=== PATIENT | female | born 1995 | race Caucasian/White ===

== ENCOUNTER 2022-07-11 18:56 | Emergency (ER) | payer BC, OTHER ==
[~2022-07-11] VITALS: Ht 162.6 cm; Wt 54.4 kg
--- NOTE | 2022-07-11 19:13 | NUR ---
BIB SELF C/C ABD PAIN
--- NOTE | 2022-07-11 19:20 | NUR ---
URINE SPECIMEN SENT TO LAB
--- NOTE | 2022-07-11 19:25 | NUR ---
IMPROVEMENT ANALYST AT BEDSIDE
--- NOTE | 2022-07-11 19:28 | NUR ---
WAIVER SIGNED. RADIOLOGY FF UP FOR CT SCAN
--- NOTE | 2022-07-11 19:35 | NUR ---
PT TAKEN TO CT SCAN VIA DEYANIRA
--- NOTE | 2022-07-11 19:39 | NUR ---
CAME BACK FROM CT SCAN
[2022-07-11 20:23] LABS: BILIRUBIN,URINE NEGATIVE (NEGATIVE); COLOR,URINE YELLOW (YELLOW); LEUKOCYTE ESTERASE ,URINE NEGATIVE (NEGATIVE); NITRITE, URINE NEGATIVE (NEGATIVE); PROTEIN,URINE NEGATIVE (NEGATIVE); UGLUCOSE NEGATIVE (NEGATIVE); UROBILINOGEN,URINE 0.2 EU/dL (0.2)
[2022-07-11 20:30] LABS: ALBUMIN 3.8 g/dL (3.4-5.0); BILIRUBIN,DIRECT 0.1 mg/dL (0.0-0.2); BILIRUBIN,TOTAL 0.3 mg/dL (0.2-1.0); CALCIUM, SERUM 9.1 mg/dL (8.5-10.1); CREATININE 0.9 mg/dL (0.6-1.3); POTASSIUM 3.7 mmol/L (3.5-5.1); TOTAL PROTEIN, SERUM 7.4 g/dL (6.4-8.2)
[2022-07-11 20:44] LABS: BACTERIA,URINE Many /HPF (None Seen); SQUAMOUS EPITHELIAL CELL,UR Many /HPF (None Seen); WBC,URINE NONE SEEN /HPF (0-3)
[2022-07-11] MEDS ORDERED: MORPHINE SULFATE INJ 4 MG/ML DISP.SYRIN ONE (20:59)
[2022-07-11] MEDS ORDERED: ONDANSETRON 4 MG TAB.RAPDIS ONE (20:59)
[2022-07-11] MEDS ORDERED: HYDR-4303 PO (21:00)
[2022-07-11] MEDS ORDERED: ONDA4TAB11 PO (21:00)
[2022-07-11] MEDS ORDERED: SULF1TAB48 PO (21:00)
[2022-07-11] MEDS ORDERED: MORPHINE SULFATE INJ 4 MG/ML DISP.SYRIN IM ONE (21:00)
[2022-07-11] MEDS ORDERED: ONDANSETRON 4 MG TAB.RAPDIS SL ONE (21:00)
--- NOTE | 2022-07-11 21:15 | NUR ---
Patient awaiting for mother to pickup pt for discharge to home. RX Written and verbal after care instructions given. Patient verbalizes understanding of instruction.
[2022-07-11 21:37] VITALS: BP 128/64
--- NOTE | 2022-07-11 21:37 | NUR ---
Patient discharged to home in stable condition. Written and verbal after care instructions given. Patient verbalizes understanding of instruction.
[2022-07-11 23:13] LABS: BASOPHILS % (AUTO) 0.3 % (0.0-2.0); EOSINOPHILS % (AUTO) 7.3 % (0.0-6.0); HEMATOCRIT 40 % (33-45); HEMOGLOBIN 13.5 g/dL (11.5-14.8); LYMPHOCYTES # (AUTO) 1.8 K/uL (0.8-4.8); LYMPHOCYTES % (AUTO) 27.8 % (20.0-44.0); MEAN CORPUSCULAR HGB CONC 34 g/dl (31.0-36.0); MEAN CORPUSCULAR VOLUME 88 fL (82-100); MONOCYTES # (AUTO) 0.4 K/uL (0.1-1.30); MONOCYTES % (AUTO) 6.7 % (2.0-12.0); NEUTROPHILS # (AUTO) 3.8 K/uL (1.8-8.9); NEUTROPHILS % (AUTO) 57.9 % (43.0-81.0); PLATELET COUNT (AUTO) 354 K/uL (150-450); RED BLOOD CELL COUNT(AUTO) 4.56 MIL/uL (4.0-5.2); WHITE BLOOD COUNT (AUTO) 6.6 K/uL (4.3-11.0)
== END 2022-07-11 21:38 | disposition home or self-care (01) ==
LOC: ER 19:06
DX: K52.9 Noninfective gastroenteritis and colitis, unspecified (principal); R10.31 Right lower quadrant pain; R11.0 Nausea
CPT/HCPCS: 99285; 74176; 96372; 85025; 80048; 87086; 83690; 80076; 84703; 81001; 36415; J2270; Q0162

== ENCOUNTER 2023-07-20 20:40 | Emergency (ER) | payer BC, OTHER ==
[~2023-07-20] VITALS: Ht 162.6 cm; Wt 54.4 kg
[~2023-07-20 20:40] MED LIST: HYDR-4303 PO; ONDA4TAB11 PO; SULF1TAB48 PO
[2023-07-20 21:40] VITALS: TEMP 99.9
[2023-07-20] MEDS ORDERED: ONDANSETRON HCL/PF 4 MG/2 ML VIAL ONE (22:01)
[2023-07-20] MEDS: IV NS 0.9% 1,000 ML BAG IV ONE (22:07)
[2023-07-20] MEDS: ONDANSETRON HCL/PF 4 MG/2 ML VIAL IVP ONE (22:07)
[2023-07-20 22:29] LABS: BASOPHILS % (AUTO) 0.1 % (0.0-2.0); EOSINOPHILS # (AUTO) 0.4 K/uL (0.0-0.7); EOSINOPHILS % (AUTO) 6.3 % (0.0-6.0); HEMATOCRIT 39 % (33-45); HEMOGLOBIN 13.4 g/dL (11.5-14.8); LYMPHOCYTES % (AUTO) 15.5 % (20.0-44.0); MEAN CORPUSCULAR HEMOGLOBIN 30 PG (26.0-33.0); MEAN CORPUSCULAR HGB CONC 34 g/dl (31.0-36.0); MEAN CORPUSCULAR VOLUME 88 fL (82-100); MONOCYTES # (AUTO) 0.4 K/uL (0.1-1.30); MONOCYTES % (AUTO) 6.1 % (2.0-12.0); NEUTROPHILS # (AUTO) 4.7 K/uL (1.8-8.9); PLATELET COUNT (AUTO) 207 K/uL (150-450); RED BLOOD CELL COUNT(AUTO) 4.47 MIL/uL (4.0-5.2); RED CELL DISTRIBUTION WIDTH 12.2 % (11.5-15.0); WHITE BLOOD COUNT (AUTO) 6.6 K/uL (4.3-11.0)
[2023-07-20 22:42] LABS: CALCIUM, SERUM 8.9 mg/dL (8.5-10.1); CREATININE 0.9 mg/dL (0.6-1.3); POTASSIUM 3.4 mmol/L (3.5-5.1)
[2023-07-20 22:47] LABS: ALBUMIN 3.6 g/dL (3.4-5.0); BILIRUBIN,DIRECT 0.1 mg/dL (0.0-0.2); BILIRUBIN,TOTAL 0.5 mg/dL (0.2-1.0); TOTAL PROTEIN, SERUM 7.2 g/dL (6.4-8.2)
[2023-07-20 23:18] LABS: APPEARANCE,URINE CLEAR (CLEAR); BILIRUBIN,URINE NEGATIVE (NEGATIVE); BLOOD, URINE NEGATIVE Ery/uL (NEGATIVE); COLOR,URINE YELLOW (YELLOW); KETONES,URINE NEGATIVE (NEGATIVE); LEUKOCYTE ESTERASE ,URINE TRACE (NEGATIVE); NITRITE, URINE NEGATIVE (NEGATIVE); PH,URINE 6.5 (5.0-8.0); PROTEIN,URINE NEGATIVE (NEGATIVE); UGLUCOSE NEGATIVE (NEGATIVE); UROBILINOGEN,URINE 0.2 EU/dL (0.2)
[2023-07-20 23:19] LABS: ADD URINE CULTURE NO; BACTERIA,URINE Rare /HPF (None Seen); PREGNANCY TEST URINE QUAL NEGATIVE (NEGATIVE); RBC,URINE 0-2 /HPF (0-2); SQUAMOUS EPITHELIAL CELL,UR Few /HPF (None Seen)
[2023-07-20] MEDS ORDERED: ONDA4TAB5 PO (23:26)
[2023-07-20] MEDS ORDERED: CEPH500C2 PO (23:26)
[2023-07-20] MEDS ORDERED: CIPR-262 PO (23:44)
[2023-07-20] MEDS ORDERED: FLUC150T PO (23:44)
[2023-07-21 00:07] VITALS: BP 120/68; O2SAT 98
== END 2023-07-21 00:07 | disposition home or self-care (01) ==
LOC: ER 20:44
DX: K52.9 Noninfective gastroenteritis and colitis, unspecified (principal); R11.2 Nausea with vomiting, unspecified
CPT/HCPCS: 99285; 74176; 96374; 96361; 85025; 80048; 83690; 80076; 84703; 81001; 36415; J2405; J7030